=== PATIENT | female | born 1995 | race African-American/Black ===

== ENCOUNTER 2016-10-28 13:00 | Emergency (ER) | payer MEDICAID ==
[~2016-10-28] VITALS: Ht 167.6 cm; Wt 60.0 kg
[2016-10-28 13:01] VITALS: BP 116/66; PULSE 56; RESP 20; TEMP 97.2; O2SAT 98
--- NOTE | 2016-10-28 13:14 | PD ---
Physical Exam Time Seen by Provider: 13:12 Narrative 21yo F requesting testing for herpes 1 and 2. Her girlfriend is concerned of same and she also wants to be tested. Denies vag dc, odor, itch, lesions. Denies dysuria, abd pain. Her girlfriend had prior test saying she had "antibodies to herpes" and they want to know if its type 1 or 2. Patient seen in triage. VS reviewed. Awaiting bed placement. Data Data Last Documented VS Vital Signs Date Time Temp Pulse Resp B/P Pulse Ox O2 Delivery O2 Flow Rate FiO2 10/28/16 13:01 97.2 56 20 116/66 98 Room Air [facility] Supervised Visit with GERRY: Jackie Pérez Oct 28, 2016 13:14
--- NOTE | 2016-10-28 14:19 | PD ---
HPI Chief Complaint: Medical Clearance Time Seen by Provider: 14:15 Travel History International Travel<30 days: No Contact w/Intl Traveler<30days: No Traveled to known affect area: No History of Present Illness HPI 21-year-old female presents to the emergency department requesting STD testing. The patient states that she wants to be tested "for everything." She denies any symptoms. Denies any vaginal discharge, abdominal pain, dysuria, skin lesions. No modifying factors. No other complaints. PFSH Past Medical History ?: Not Social History Tobacco Use: No Allergies-Medications (Allergen,Severity, Reaction): Coded Allergies: No Known Allergies (Unverified , 10/28/16) Review of Systems Except as stated in HPI: all other systems reviewed are Neg Physical Exam Narrative GENERAL: Well-nourished and well-developed pleasant female patient in no acute distress who is nontoxic appearing. SKIN: Warm and dry. HEAD: Normocephalic and atraumatic. EYES: No injection, drainage, or hyphema noted. PERRLA. EOMI. ENT: No nasal drainage noted. Oropharynx is clear. NECK: Supple and the trachea is midline. CARDIOVASCULAR: Regular rate and rhythm. RESPIRATORY: Breath sounds are equal bilaterally with no accessory muscle use, wheezing, rhonchi, or crackles. MUSCULOSKELETAL: No obvious deformities, swelling, cyanosis, or ecchymosis is present throughout the upper and lower extremities. NEUROLOGICAL: Awake, alert, and oriented. Normal speech and gait. Cranial nerves are grossly intact. Data Data Last Documented VS Vital Signs Date Time Temp Pulse Resp B/P Pulse Ox O2 Delivery O2 Flow Rate FiO2 10/28/16 13:01 97.2 56 20 116/66 98 Room Air MDM Medical Decision Making Medical Screen Exam Complete: Yes Emergency Medical Condition: Yes Differential Diagnosis Medical screening examination versus medical clearance versus screening tests Narrative Course 21-year-old female presents to the emergency department requesting STD testing. Patient is afebrile, vital signs are stable. She denies any complaints or symptoms. Physical examination is unremarkable. I discussed with the patient that we do not perform screening test here in the emergency department and that she will need to follow up as an outpatient with either the [facility] or a [facility] such as [facility]. There is no urgent or emergent intervention necessary at this time. A medical screening exam was performed: At the time of evaluation the presenting medical condition was determined not to be of an emergent nature. Patient was given options for additional community resources from which to obtain care. The Patient Has Been advised to seek medical attention for their presenting complaint. The patient has been advised to return to the ER at any time if an emergent condition develops. Diagnosis Primary Impression: Encounter for medical screening examination Disposition: EDGO-ED USE ONLY Jackie Lopes Oct 28, 2016 14:19
== END 2016-10-28 15:16 | disposition left against medical advice (07) ==
LOC: NEPK 13:00
DX: Z20.828 Contact with and (suspected) exposure to other viral communicable diseases (principal)
CPT/HCPCS: 99281